=== PATIENT | female | born 1955 | race Caucasian/White ===

== ENCOUNTER → 2016-12-23 | Outpatient (CLI) | payer BC ==
[2015-04-25 22:19] VITALS: BP 177/93
--- NOTE | 2016-12-23 13:12 | RAD ---
HISTORY: Asthma. Study: PA and lateral chest. Comparison: None. Findings: The trachea is midline. The cardiac silhouette is unremarkable. Chronic emphysematous changes. Biba silar scarring versus atelectasis. No obvious focal consolidation, pleural effusion, or pneumothorax. The bony thorax is unremarkable. IMPRESSION: No acute cardiopulmonary disease. Reported By:
== END ==
LOC: RAD 11:31
PROVIDERS: ATTEND Internal Medicine Pulmonary Disease
DX: J45.50 Severe persistent asthma, uncomplicated (principal); R91.1 Solitary pulmonary nodule
CPT/HCPCS: 71020

== ENCOUNTER → 2017-06-29 | Outpatient (CLI) | payer BC ==
[2015-04-25 22:19] VITALS: BP 177/93
--- NOTE | 2017-06-29 11:48 | MG ---
HISTORY: SCREENING Comparison: Previous mammograms dated 07/09/2013 and 05/08/2012. FINDINGS: Bilateral CC and MLO projections of the right and left breast were obtained. Scattered fibroglandula r tissue is seen to be present. No significant architectural distortion, mass or clustered microcalc ifications can be observed to suggest malignancy. No skin thickening or nipple retraction is appreci ated. No pathological lymphadenopathy can be identified. Benign-appearing calcifications scattered throughout the right and left breasts are observed. IMPRESSION: NO RADIOGRAPHIC EVIDENCE OF MALIGNANCY. ACR CATEGORY: 2 - benign findings. FOLLOW-UP EXAM 1 YEAR. Diagnostic CAD was utilized and reviewed. * 0 (ZERO) - ASSESSMENT INCOMPLETE; ADDITIONAL IMAGING IS NEEDED. * 1/ (ONE) - NEGATIVE. * 2/II (TWO) - BENIGN FINDINGS. * 3/III (THREE) - PROBABLY BENIGN FINDING; SHORT INTERVAL FOLLOW-UP SUGGESTED. * 4/IV (FOUR) - SUSPICIOUS ABNORMALITY; BIOPSY SHOULD BE CONSIDERED. * 5/V - HIGHLY SUSPICIOUS OF MALIGNANCY; BIOPSY SHOULD BE PERFORMED. A NEGATIVE X-RAY REPORT SHOULD NOT DELAY BIOPSY IF A DOMINANT OR CLINICALLY SUSPICIOUS MASS IS PRESENT; 4 TO 8 PERCENT OF CANCERS ARE NOT IDENTIFIED BY X-RAY. A NEGA TIVE REPORT MAY REINFORCE THE CLINICAL IMPRESSION. ADENOSIS AND DENSE BREASTS MAY OBSCURE AN UNDERLY ING NEOPLASM. Reported By:
== END ==
LOC: RAD 10:07
PROVIDERS: ATTEND Specialist
DX: Z12.31 Encounter for screening mammogram for malignant neoplasm of breast (principal)
CPT/HCPCS: 77067

== ENCOUNTER 2021-03-02 12:40 | Observation (INO) ==
[2021-03-02 13:02] VITALS: BMI 25.6
--- NOTE | 2021-03-02 13:05 | DR.WEAKNES ---
HPI Time Seen Time Seen by Provider: 03/02/21 13:05 Primary Care Physician Primary Care Physician: Complaints Chief Complaint:: PT ARRIVED PER [facility] FROM HOME W/ C/O RIGHT SIDED NUBNESS & TINGLING ONSET THIS AM @ 1130. UPON ARRIVAL PT'S IS A&O X3, PT ABLE TO SPEAK IN COMPLETE SENTENCES @ THIS TIME. NO NEURO DEFICITS NOTED @ THIS TIME. Source History Provided: Patient Mode of Arrival Mode of Arrival: EMS Timing Onset of Chief Complaint: 03/02/21 Symptom Onset: Known Onset of Symptoms Start Date: 03/02/21 Onset of Symptoms Start Time: 11:30 PMH PMH Past Medical History: Yes Past Medical History: Asthma, Dyslipidemia, Hypertension and Hypothyroidism Past Surgical History: Yes Surgical History: Hysterectomy, Joint Replacement and Tonsillectomy Family History History of Family Medical Conditions: Yes Family Medical History: Cancer, [place], Coronary Artery Disease and Hypertension Social History Do you use any recreational Drugs:: No Travel Risk Coronavirus risk:travel/contact w/high risk person: No Has patient experienced Coronavirus symptoms: No Infectious screening Have you traveled outside the country in the last 6 months?: No Isolation: Standard ROS Review of Systems Constitutional: No Symptoms Reported, See HPI and Weakness (RIGHT SIDED WEAKNESS.); negative Fever Eyes: No Symptoms Reported and See HPI ENTM: See HPI; negative Nose Discharge, Nose Congestion, Mouth Swelling (DYSPHAGIA.) and Throat Pain Respiratoy: No Symptoms Reported and See HPI; negative Moist Cough, Short of Breath and Wheezing Cardiovascular: No Symptoms Reported and See HPI; negative Chest Pain, Edema and Syncope Gastrointestinal/Abdominal: No Symptoms Reported and See HPI; negative Abdominal Pain, Diarrhea, Nausea and Vomiting Genitourinary: No Symptoms Reported and See HPI; negative Dysuria, Frequency and Hematuria Neurological: See HPI, Headache, Paresthesia (RIGHT SIDED WEAKNESS.) and Weakness; negative Dizziness Musculoskeletal: No Symptoms Reported, See HPI and Other (RIGHT SIDED WEAKNESS.) Integumentary: No Symptoms Reported and See HPI; negative Change in Color, Rash and Juandice Hematologic/Lymphatic: See HPI, Easy Bleeding and Easy Bruising Endocrine: No Symptoms Reported; negative Increased Thirst and Increased Urine Psychiatric: No Symptoms Reported and See HPI All Other Systems: Reviewed and Negative PE Vital Signs Vitals: Temperature 98.1 F Pulse Rate 77 Respiratory Rate 14 Blood Pressure 150/68 O2 Sat by Pulse Oximetry 95 General Limitations: No Limitations General Appearance: Alert and In No Apparent Distress Head Head Exam: Normal Inspection Eyes Eye exam: Normal Appearance and PERRL; negative Scleral Icterus and Conjunctival Injection Eyelids: Normal Inspection: Bilateral Pupils: Regular, Round: Bilateral and Reactive: Bilateral Sclera/Conjunctival: Normal Inspection: Bilateral Anterior Chamber: Normal Inspection: Bilateral ENT ENT Exam: Normal Exam, Normal Oropharynx, Normal External Ear Exam and TM's Normal Bilaterally Mouth Exam: Normal Inspection; negative Lip Swelling and Tongue Swelling Throat Exam: Normal Inspection and Tonsillar Erythema; negative Tonsillomegaly and Tonsillar Exudate Neck Neck Exam: Normal Inspection and Trachea Midline; negative Tenderness Chest Chest Inspection: Normal Inspection and Symmetric Chest Wall Rise; negative Tenderness Respiratory Respiratory Exam: Normal Lung Sounds Bilat; negative Accessory Muscle Use, Chest Wall Tenderness and Respiratory Distress Respiratory Exam: Bilateral: Clear to Auscultation Cardiovascular Cardiovascular Exam: Regular Rate, Normal Rhythm and Normal Heart Sounds; negative Systolic Murmur and Diastolic Murmur Abdominal Exam Abdominal Exam: Normal Inspection, Normal Bowel Sounds and Soft; negative Tenderness Extremities Extremities Exam: Normal Inspection and Normal Capillary Refill Back Back Exam: Normal Inspection; negative (R) CVA Tenderness and (L) CVA Tenderness Neurologic Neurological Exam: Alert, Oriented X3 and CN II-XII Intact; negative Motor Sensory Deficit Patient Oriented To: Person, Place and Time Speech: Fluid Speech Cranial Nerve Exam: EOM Function (II, III, IV, ): Normal, Facial Sensation (V): Normal, Facial Palsy (VII): Normal, Gag reflex (XI): Normal and Tongue Deviation: Normal Cerebellar Function: Finger to Nose: Normal and Heel to Leonardo: Normal Motor Strength - LUE: 5/5 Motor Strength - RUE: 4/5 Motor Strength - LLE: 5/5 Motor Strength - RLE: 4/5 Upper Motor Neuron Exam: Babinski Sign: Normal Psychiatric Psychiatric Exam: Normal Affect and Normal Mood Skin Skin Exam: Warm, Dry, Intact and Normal Color MDM Additional Information Obtained Additional Information Obtained From: Old Records, Family and PCP Differential Diagnosis Differential Diagnosis: CVA, Electrolyte Disorder, Hypoglycemia, Mass Lesion and TIA Differential Diagnosis Comment: HYPERTENSION. COURSE Treatment Treatment: SEE ORDERS. PATIENT TOOK 3TABS OF 325MG ASA TAB. LABETALOL 10MG IV IN ER. PAIN IMPROVING. Consultation Consultation Comments: DISCUSSED PATIENT WITH DR. ARGUELLO. HE WILL ADMIT PATIENT. Education/Counseling Education/Counseling: Patient and Family Educated On: Diagnosis ROR Labs Reviewed Laboratory Results Reviewed?: Yes Result Diagrams: 03/02/21 13:28 03/02/21 13:28 Laboratory: WBC 8.5 X10^3/uL (3.6-10.0) 03/02/21 13:28 RBC 4.68 X10^6/uL (3.5-5.4) 03/02/21 13:28 Hgb 14.2 g/dL (12.0-16.0) 03/02/21 13:28 Hct 41.9 % (36.0-47.0) 03/02/21 13:28 MCV 89.5 fL (80.0-100.0) 03/02/21 13:28 MCH 30.3 pg (27.0-34.0) 03/02/21 13:28 MCHC 33.8 g/dL (33.0-35.0) 03/02/21 13:28 RDW 15.1 % (11.6-16.5) 03/02/21 13:28 Plt Count 288 X10^3/uL (150.0-450.0) 03/02/21 13:28 MPV 8.0 fL (7.4-11.0) 03/02/21 13:28 Neut % (Auto) 68.2 % (42.0-75.0) 03/02/21 13:28 Lymph % (Auto) 22.3 % (21.0-51.0) 03/02/21 13:28 [place] % (Auto) 6.6 % (0.0-13.0) 03/02/21 13:28 Eos % (Auto) 1.9 % (0.9-2.9) 03/02/21 13:28 Baso % (Auto) 1.0 % (0.2-1.0) 03/02/21 13:28 Neut # (Auto) 5.8 x10^3/uL (2.2-4.8) H 03/02/21 13:28 Lymph # (Auto) 1.9 X10^3/uL (1.3-2.9) 03/02/21 13:28 [place] # (Auto) 0.6 x10^3/uL (0.3-0.8) 03/02/21 13:28 Eos # (Auto) 0.2 x10^3/uL (0.0-0.2) 03/02/21 13:28 Baso # (Auto) 0.1 X10^3/uL (0.0-0.1) 03/02/21 13:28 Absolute Nucleated RBC 0.0 /100WBC 03/02/21 13:28 PT 12.3 SECONDS (11.8-14.3) 03/02/21 13:28 INR Target Range - 03/02/21 13:28 INR 0.96 (0.8-1.3) 03/02/21 13:28 APTT 31.1 SECONDS (22.9-36.5) 03/02/21 13:28 PTT Comment - 03/02/21 13:28 Sodium 141 mmol/L (136-145) 03/02/21 13:28 Corrected Sodium 141 mmol/L (136-145) 03/02/21 13:28 Potassium 3.7 mmol/L (3.5-5.1) 03/02/21 13:28 Chloride 105 mmol/L (98-107) 03/02/21 13:28 Carbon Dioxide 25.4 mmol/L (21-32) 03/02/21 13:28 BUN 14 mg/dL (7-18) 03/02/21 13:28 Creatinine 0.82 mg/dL (0.55-1.02) 03/02/21 13:28 Est GFR (MDRD) Af Amer > 60 (>60) 03/02/21 13:28 Est GFR (MDRD) Non-Af > 60 (>60) 03/02/21 13:28 Glucose 120 mg/dL (65-99) H 03/02/21 13:28 Calcium 9.3 mg/dL (8.5-10.1) 03/02/21 13:28 Corrected Calcium TNP 03/02/21 13:28 Magnesium 2.2 mg/dL (1.7-2.9) 03/02/21 13:28 Total Bilirubin 0.20 mg/dL (0.2-1.0) 03/02/21 13:28 AST 17 Units/L (15-37) 03/02/21 13:28 ALT 25 Units/L (12-78) 03/02/21 13:28 Alkaline Phosphatase 71 Units/L (46-116) 03/02/21 13:28 Creatine Kinase 95 Units/L (26-192) 03/02/21 13:28 CK-MB (CK-2) 1.7 ng/mL (0-4.0) 03/02/21 13:28 CK/CKMB % Calc 1.8 % (<4) 03/02/21 13:28 Troponin I < 0.02 ng/mL (0-1.5) 03/02/21 13:28 Total Protein 7.6 g/dL (6.4-8.2) 03/02/21 13:28 Albumin 3.4 g/dL (3.4-5.0) 03/02/21 13:28 Globulin 4.2 g/dL (2.5-4.5) 03/02/21 13:28 Albumin/Globulin Ratio 0.8 Ratio (1.1-2.1) L 03/02/21 13:28 SARS CoV-2 RNA Rapid SARAH Negative (NEGATIVE) 03/02/21 15:59 XRAY XRAY Interpreted by: Radiologist (REPORTS NOTED AND DISCUSSED WITH PATIENT AND HER .) and Self EKG Rate: 94 [place]: Normal Rhythm: NSR Block: None Hypertrophy: LAE ST: Old, Inf, Infarct and Nonsp Opioid Opioid Risk Tool Age (Solo box if 16-45): No Total: 0 Total Score Risk Category: Low Risk Copyright: Jose Juan CELESTE predicting aberrant behaviors Diagnosis Discharge Problem: Acute right-sided muscle weakness Hypertension Qualifiers: Hypertension type: primary hypertension Qualified Code(s): I10 - Essential (primary) hypertension Instructions Forms: Precautions for COVID19 [facility] Patient Portal Social Distancing
--- NOTE | 2021-03-02 13:21 | CT ---
HISTORYstroke symptoms onset 11:30STUDYBRAIN W/O CONCOMPARISONNone.TECHNIQUEMultiple axial images of the head were performed from the skullbase to the vertex using standard departmental protocol. Sagittal and coronal reformatted images were performed. Dose reduction techniques including Automated Exposure Control (AEC) and adjustment of mA and kV were utilized.FINDINGSThe lateral ventricles and basilar cisterns are patent.No parenchymal mass or hematoma. Ryder-white differentiation appears acutely preserved. Mild low attenuation change in the subcortical and deep supratentorial white matter.No extra-axial collection.The globes are intact.No air fluid levels in the paranasal sinuses. No paranasal sinus wall thickening or sclerosis. Mastoid air cells are clear.The calvarium is intact.IMPRESSIONNo acute intracranial abnormality. Mild chronic small vessel disease. Consider MRI brain for further evaluation as clinically warranted.Electronically signed by: Jean-Claude Block (Mar 02, 2021 13:19:49)
[2021-03-02 13:44] LABS: BASOPHILS # (AUTO) 0.1 X10^3/uL (0.0-0.1); EOSINOPHILS # (AUTO) 0.2 x10^3/uL (0.0-0.2); EOSINOPHILS % (AUTO) 1.9 % (0.9-2.9); HEMATOCRIT 41.9 % (36.0-47.0); HEMOGLOBIN 14.2 g/dL (12.0-16.0); LYMPHOCYTES # (AUTO) 1.9 X10^3/uL (1.3-2.9); LYMPHOCYTES % (AUTO) 22.3 % (21.0-51.0); MEAN CORPUSCULAR HEMOGLOBIN 30.3 pg (27.0-34.0); MEAN CORPUSCULAR HGB CONC 33.8 g/dL (33.0-35.0); MEAN CORPUSCULAR VOLUME 89.5 fL (80.0-100.0); MONOCYTES # (AUTO) 0.6 x10^3/uL (0.3-0.8); MONOCYTES % (AUTO) 6.6 % (0.0-13.0); NEUTROPHILS # (AUTO) 5.8 x10^3/uL (2.2-4.8); NEUTROPHILS % (AUTO) 68.2 % (42.0-75.0); PLATELET COUNT 288 X10^3/uL (150.0-450.0); RED BLOOD COUNT 4.68 X10^6/uL (3.5-5.4); RED CELL DISTRIBUTION WIDTH 15.1 % (11.6-16.5); WHITE BLOOD COUNT 8.5 X10^3/uL (3.6-10.0)
[2021-03-02] MEDS ORDERED: NORMODYNE INJ 20 MG VIAL ONE (13:55)
[2021-03-02 13:59] LABS: ALANINE AMINOTRANSFERASE 25 Units/L (12-78); ALBUMIN 3.4 g/dL (3.4-5.0); ALKALINE PHOSPHATASE 71 Units/L (46-116); ASPARTATE AMINO TRANSFERASE 17 Units/L (15-37); BLOOD UREA NITROGEN 14 mg/dL (7-18); CALCIUM 9.3 mg/dL (8.5-10.1); CARBON DIOXIDE 25.4 mmol/L (21-32); CHLORIDE 105 mmol/L (98-107); CKMB % 1.8 % (<4); COR NA(FOR HYPERGLY) 141 mmol/L (136-145); CREATINE KINASE 95 Units/L (26-192); CREATINE KINASE MB 1.7 ng/mL (0-4.0); CREATININE 0.82 mg/dL (0.55-1.02); MAGNESIUM 2.2 mg/dL (1.7-2.9); SODIUM 141 mmol/L (136-145); TOTAL PROTEIN 7.6 g/dL (6.4-8.2); TROPONIN I < 0.02 ng/mL (0-1.5); eGFR NON BLACK RACES > 60 (>60)
[2021-03-02] MEDS ORDERED: LABETALOL HCL IVP ONE (14:01)
--- NOTE | 2021-03-02 14:04 | RAD ---
HISTORYCHEST PAIN, HTN Relevant Clinical InformationSTUDYCHEST, 1 VIEWCOMPARISONNoneFINDINGSThe trachea is midline. The cardiac silhouette is unremarkable. The lungs are clear without focal infiltrate or effusion. The bony thorax is unremarkable.IMPRESSIONNo acute cardiopulmonary findings .Electronically signed by: MONTSERRAT GRIMALDO (Mar 02, 2021 14:01:59)
--- NOTE | 2021-03-02 16:45 | MRI ---
HISTORYWEAKNESSSTUDYMRA HEAD without IV contrastCOMPARISONNoneTECHNIQUE3-D [id number] imaging of the intracranial circulation was performed with MIP reconstructions.IV contrast was not administered.FINDINGSArtifacts slightly limit evaluation. Anterior communicating artery is seen but no posterior communicating arteries are identified. No suggestion of significant intracranial arterial stenosis or aneurysm is seen.IMPRESSIONNo hemodynamically significant stenosis is seen but artifacts slightly limit the study.Electronically signed by: Migel Edwards (Mar 02, 2021 16:44:13)
--- NOTE | 2021-03-02 16:50 | MRI ---
HISTORYWEAKNESSSTUDYBRAIN W/O CONCOMPARISONCT head dated 03/02/2021TECHNIQUEMultiplanar multi sequences images through the brain were performed without contrastFINDINGSThe ventricles are normal in size and symmetric. There is a focal area of restricted diffusion involving the left thalamus and the posterior limb of the left internal capsule with restricted diffusion suspicious for an acute infarct there are no changes on FLAIR or T2 weighted imagesFLAIR images demonstrate mild periventricular and multiple areas of high signal in the subcortical white matter more prominent in the parietal lobes. There is artifact on FLAIR images at the occipital region bilaterally. No significant sulci thickening.The main arterial and venous flow voids are present, no abnormal signal in the mastoid cells and included paranasal sinuses. No orbital masses. No evidence of sellar masses. No nasopharyngeal masses. The cervicocranial junction is unremarkable. No abnormal intraparenchymal susceptibility artifact.IMPRESSIONAcute infarct of the posterior limb of the left internal capsule and the left lateral thalamus less than 24 hours.Patchy subcortical white matter changes with the largest area in the right parietal lobe, differential vasculitis, small vessel disease less likely demyelinization.Electronically signed by: Aurora Baez (Mar 02, 2021 16:49:04)
--- NOTE | 2021-03-02 16:54 | MRI ---
HISTORYWEAKNESSSTUDYMRA NECK without IV [id number] and 3D time of flight images of the carotid and vertebral arteries in the neck were performed with MIP reconstructions. IV contrast was not administered. Images are reviewed using NASCET criteria.FINDINGSLeft vertebral artery is mildly dominant. No suggestion of vertebral artery stenosis or dissection is seen. Origins of the vertebral arteries are not well seen.There is tortuosity of the ICAs. Origins of the CCA is are not well visualized. No evidence of significant CCA or ICA stenosis is seen in the neck.IMPRESSIONNo suggestion of hemodynamically significant stenosis is seen in the carotid or vertebral arteries in the neck.Electronically signed by: Migel Edwards (Mar 02, 2021 16:52:33)
[2021-03-02 20:04] LABS: CKMB % 1.7 % (<4); CREATINE KINASE 92 Units/L (26-192); CREATINE KINASE MB 1.6 ng/mL (0-4.0); TROPONIN I < 0.02 ng/mL (0-1.5)
[2021-03-02] MEDS: PLAVIX PO SCH (23:08)
[2021-03-02 23:26] LABS: BILIRUBIN,URINE NEGATIVE (NEGATIVE); BLOOD/HEMOGLOBIN,URINE NEGATIVE (NEGATIVE); GLUCOSE, URINE NEGATIVE (NEGATIVE); KETONES,URINE NEGATIVE (NEGATIVE); LEUKOCYTE ESTERASE ,URINE NEGATIVE (NEGATIVE); NITRITES,URINE NEGATIVE (NEGATIVE); PROTEIN,URINE NEGATIVE (NEGATIVE); UROBILINOGEN,URINE NORMAL (NORMAL)
[2021-03-02 23:37] LABS: APPEARANCE,URINE CLEAR (CLEAR); COLOR,URINE YELLOW (YELLOW)
[2021-03-03 02:00] LABS: CKMB % 1.7 % (<4); CREATINE KINASE 85 Units/L (26-192); CREATINE KINASE MB 1.4 ng/mL (0-4.0); TROPONIN I < 0.02 ng/mL (0-1.5)
[2021-03-03 07:29] LABS: BASOPHILS # (AUTO) 0.1 X10^3/uL (0.0-0.1); BASOPHILS % (AUTO) 1.3 % (0.2-1.0); EOSINOPHILS # (AUTO) 0.1 x10^3/uL (0.0-0.2); EOSINOPHILS % (AUTO) 2.1 % (0.9-2.9); HEMATOCRIT 40.3 % (36.0-47.0); HEMOGLOBIN 13.5 g/dL (12.0-16.0); LYMPHOCYTES # (AUTO) 1.6 X10^3/uL (1.3-2.9); LYMPHOCYTES % (AUTO) 25.5 % (21.0-51.0); MEAN CORPUSCULAR HEMOGLOBIN 29.7 pg (27.0-34.0); MEAN CORPUSCULAR HGB CONC 33.4 g/dL (33.0-35.0); MEAN CORPUSCULAR VOLUME 89.2 fL (80.0-100.0); MEAN PLATELET VOLUME 7.8 fL (7.4-11.0); MONOCYTES # (AUTO) 0.5 x10^3/uL (0.3-0.8); MONOCYTES % (AUTO) 7.6 % (0.0-13.0); NEUTROPHILS # (AUTO) 4.1 x10^3/uL (2.2-4.8); NEUTROPHILS % (AUTO) 63.5 % (42.0-75.0); PLATELET COUNT 274 X10^3/uL (150.0-450.0); RED BLOOD COUNT 4.52 X10^6/uL (3.5-5.4); RED CELL DISTRIBUTION WIDTH 15.5 % (11.6-16.5); WHITE BLOOD COUNT 6.4 X10^3/uL (3.6-10.0)
[2021-03-03 07:44] LABS: ALANINE AMINOTRANSFERASE 20 Units/L (12-78); ALBUMIN 3.1 g/dL (3.4-5.0); ALKALINE PHOSPHATASE 58 Units/L (46-116); ASPARTATE AMINO TRANSFERASE 17 Units/L (15-37); BLOOD UREA NITROGEN 11 mg/dL (7-18); CALCIUM 8.8 mg/dL (8.5-10.1); CARBON DIOXIDE 27.8 mmol/L (21-32); CHLORIDE 105 mmol/L (98-107); CHOL/HDL RATIO 8.8 (0.0-5.0); CHOLESTEROL 308 mg/dL (0-200); COR CA(FOR HYPOALB) 9.5 mg/dL (8.5-10.1); CREATININE 0.76 mg/dL (0.55-1.02); HDL CHOLESTEROL 35 mg/dL (40-60); SODIUM 142 mmol/L (136-145); TOTAL PROTEIN 6.9 g/dL (6.4-8.2); TRIGLYCERIDES 405 mg/dL (0-150); eGFR NON BLACK RACES > 60 (>60)
[2021-03-03 07:59] LABS: CKMB % 1.4 % (<4); CREATINE KINASE 89 Units/L (26-192); CREATINE KINASE MB 1.2 ng/mL (0-4.0); TROPONIN I < 0.02 ng/mL (0-1.5)
[2021-03-03 08:05] VITALS: BP 148/68
[2021-03-03] MEDS ORDERED: TOPROL XL PO ONE (08:27)
[2021-03-03] MEDS: PLAVIX PO SCH (08:48)
[2021-03-03] MEDS ORDERED: SYNTHROID 100 mcg TAB PO SCH (09:00)
[2021-03-03] MEDS ORDERED: TOPROL XL PO SCH (09:00)
[2021-03-03] MEDS ORDERED: BENICAR TAB 40 MG PO SCH (09:00)
[2021-03-03] MEDS ORDERED: ASPIRIN EC 81 MG PO SCH (09:00)
[2021-03-03] MEDS ORDERED: ASPIRIN PO SCH (09:00)
[2021-03-03] MEDS ORDERED: PATIENT'S HOME MEDICATION (Aspirin 81 mg Tablet) PO SCH (09:00)
[2021-03-03] MEDS ORDERED: LOVENOX INJ 40 MG SYR SC SCH (10:00)
== END 2021-03-03 10:40 | disposition home or self-care (01) ==
LOC: MED/SURG 12:40 → ER 12:40 → MED/SURG 19:15
PROVIDERS: ADMIT Obstetrics & Gynecology Obstetrics; ATTEND Obstetrics & Gynecology Obstetrics
DX: I63.89 Other cerebral infarction; Z20.822 Contact with and (suspected) exposure to COVID-19; E03.8 Other specified hypothyroidism; I10 Essential (primary) hypertension; R94.31 Abnormal electrocardiogram [ECG] [EKG]; M62.81 Muscle weakness (generalized); E78.2 Mixed hyperlipidemia